=== PATIENT | male | born 1960 | race American Indian/Alaskan Native ===

== ENCOUNTER 2017-09-19 00:05 | Emergency (ER) | payer BC ==
--- NOTE | 2017-09-19 01:57 | XRay Report ---
FINAL REPORT PROCEDURE: XR CHEST ROUTINE 2V TECHNIQUE: A portable AP chest radiograph was obtained at 09/19/2017 00:55 (EST) . CPT 95517 HISTORY: cough X 1 month COMPARISON: No prior studies are available for comparison. FINDINGS: Heart: Normal. Mediastinum/Vessels: Normal. Lungs/Pleural space: Normal. Bony thorax: No acute osseous abnormality. Life support devices: None. IMPRESSION: No acute cardiopulmonary abnormality.
--- NOTE | 2017-09-19 02:02 | Emergency Department Report ---
ED Shortness of Breath HPI - General Chief Complaint: Upper Respiratory Infection Stated Complaint: CP Source: patient Mode of arrival: Ambulatory Limitations: No Limitations - History of Present Illness MD Complaint: cough - Related Data Home Medications Medication Instructions Recorded Confirmed Last Taken Unobtainable 09/19/17 09/19/17 Unknown Allergies Allergy/AdvReac Type Severity Reaction Status Date / Time No Known Allergies Allergy Unverified 09/19/17 00:51 ED Review of Systems ROS: Stated complaint: CP Other details as noted in HPI ED Past Medical Hx - Past Medical History Hx Hypertension: Yes Hx of Cancer: Yes (Testicular) Additional medical history: Pneumonia - Surgical History Past Surgical History?: No Additional Surgical History: Left Testicle Removal - Social History Smoking Status: Never Smoker Substance Use Type: None - Medications Home Medications: Home Medications Medication Instructions Recorded Confirmed Last Taken Type Unobtainable 09/19/17 09/19/17 Unknown History ED Physical Exam - General Limitations: No Limitations ED Course Vital Signs 09/19/17 00:33 Temperature 98.4 F Pulse Rate 76 Respiratory 20 Rate Blood Pressure 151/97 Blood Pressure 151/97 [Left] O2 Sat by Pulse 98 Oximetry Critical care attestation.: If time is entered above; I have spent that time in minutes in the direct care of this critically ill patient, excluding procedure time. ED Disposition Condition: Stable
[2017-09-19 03:10] LABS: Basophils % (Auto) 0.9 % (0.0-1.8); Eosinophils % (Auto) 4.5 % (0.0-4.3); Hematocrit 41.9 % (35.5-45.6); Hemoglobin 13.7 gm/dl (11.8-15.2); Mean Corpuscular HGB Conc 33 % (32-34); Mean Corpuscular Hemoglobin 27 pg (28-32); Mean Corpuscular Volume 84 fl (84-94); Platelet Count 170 K/mm3 (140-440); Red Blood Count 5.02 M/mm3 (3.65-5.03); Red Cell Distribution Width 14.9 % (13.2-15.2); White Blood Count 7.3 K/mm3 (4.5-11.0)
[2017-09-19 03:16] LABS: Anion Gap 17 mmol/L; BUN/Creatinine Ratio 22; Blood Urea Nitrogen 26 mg/dL (9-20); Calcium 9.2 mg/dL (8.4-10.2); Carbon Dioxide 27 mmol/L (22-30); Chloride 103.9 mmol/L (98-107); Glucose 140 mg/dL (75-100); Potassium 4.2 mmol/L (3.6-5.0); Sodium 144 mmol/L (137-145)
[2017-09-19] MEDS ORDERED: NACL ONE (04:22)
--- NOTE | 2017-09-19 05:39 | Cat Scan Report ---
FINAL REPORT PROCEDURE: CT ANGIO CHEST TECHNIQUE: Computerized tomographic angiography of the chest was performed after the IV injection of iodinated nonionic contrast including image processing. The image data was postprocessed using 2-dimensional multiplanar reformatted (MPR) and 3-dimensional (MIP and/or volume rendered) techniques. HISTORY: + d-dimer, cough COMPARISON: No prior studies are available for comparison. FINDINGS: Heart and pericardium: Normal. Thoracic aorta: There is no thoracic aortic aneurysm or dissection.. Pulmonary vasculature: There is no pulmonary embolism.. Lymph nodes: No enlarged thoracic lymph nodes. Lungs: The lungs are expanded. There are fibro emphysematous changes but no active infiltrates.. Pleural space: There is no pleural effusion or pneumothorax.. Musculoskeletal structures: No significant abnormality. Upper abdominal structures: No significant abnormality. Incidental 1 centimeter cyst in the right lobe of the liver. IMPRESSION: There is no thoracic aortic aneurysm or dissection.. There is no pulmonary embolism.. The lungs are expanded. There are fibro emphysematous changes but no active infiltrates.. There is no pleural effusion or pneumothorax..
--- NOTE | 2017-09-19 05:58 | Emergency Department Report ---
ED General Adult HPI - General Chief complaint: Upper Respiratory Infection Stated complaint: CP Time Seen by Provider: 09/19/17 02:17 Source: patient Mode of arrival: Ambulatory Limitations: No Limitations - History of Present Illness Initial comments: 57-year-old male past medical history hypertension, pneumonia presents with complaint of persistent cough 2 months. Patient states that he has been treated for pneumonia in the last 2-3 months. States that he is had a cough which has persisted. Patient states that today he experienced an episode of slightly pleuritic chest pain. Patient denies current chest pain denies palpitations denies nausea vomiting diaphoresis or shortness of breath. Patient is awake alert and oriented 3 does not appear to be in acute distress. No audible wheezing or stridor noted on exam. Patient denies being a smoker. Patient states that he has a persistent dry cough. States that after coughing fits he feels slightly short of breath. Onset/Timin -: month(s) Severity scale (0 -10): 0 Consistency: constant Worsens with: none Associated Symptoms: denies other symptoms - Related Data Previous Rx's Medication Instructions Recorded Last Taken Type ALBUTEROL Inhaler [ProAir HFA 2 puff IH QID PRN #1 inhalation 09/19/17 Unknown Rx Inhaler] Loratadine [Claritin] 10 mg PO DAILY PRN #30 tablet 09/19/17 Unknown Rx predniSONE [Deltasone] 40 mg PO QDAY #10 tablet 09/19/17 Unknown Rx Allergies Allergy/AdvReac Type Severity Reaction Status Date / Time No Known Allergies Allergy Unverified 09/19/17 00:51 ED Review of Systems ROS: Stated complaint: CP Other details as noted in HPI Constitutional: denies: chills, fever Eyes: denies: eye pain, eye discharge, vision change ENT: denies: ear pain, throat pain Respiratory: cough. denies: shortness of breath, wheezing Cardiovascular: denies: chest pain, palpitations Endocrine: no symptoms reported Gastrointestinal: denies: abdominal pain, nausea, diarrhea Genitourinary: denies: urgency, dysuria Musculoskeletal: denies: back pain, joint swelling, arthralgia Skin: denies: rash, lesions Neurological: denies: headache, weakness, paresthesias Psychiatric: denies: anxiety, depression Hematological/Lymphatic: denies: easy bleeding, easy bruising ED Past Medical Hx - Past Medical History Hx Hypertension: Yes Hx of Cancer: Yes (Testicular) Additional medical history: Pneumonia - Surgical History Past Surgical History?: No Additional Surgical History: Left Testicle Removal - Social History Smoking Status: Never Smoker Substance Use Type: None - Medications Home Medications: Home Medications Medication Instructions Recorded Confirmed Last Taken Type ALBUTEROL Inhaler [ProAir HFA 2 puff IH QID PRN #1 inhalation 09/19/17 Unknown Rx Inhaler] Loratadine [Claritin] 10 mg PO DAILY PRN #30 tablet 09/19/17 Unknown Rx predniSONE [Deltasone] 40 mg PO QDAY #10 tablet 09/19/17 Unknown Rx ED Physical Exam - General Limitations: No Limitations General appearance: alert, in no apparent distress - Head Head exam: Present: atraumatic, normocephalic - Eye Eye exam: Present: normal appearance, PERRL, EOMI - ENT ENT exam: Present: mucous membranes moist - Neck Neck exam: Present: normal inspection - Respiratory Respiratory exam: Present: normal lung sounds bilaterally. Absent: respiratory distress - Cardiovascular Cardiovascular Exam: Present: regular rate, normal rhythm. Absent: systolic murmur, diastolic murmur, rubs, gallop - GI/Abdominal GI/Abdominal exam: Present: soft, normal bowel sounds - Rectal Rectal exam: Present: deferred - Extremities Exam Extremities exam: Present: normal inspection - Back Exam Back exam: Present: normal inspection - Neurological Exam Neurological exam: Present: alert, oriented X3 - Psychiatric Psychiatric exam: Present: normal affect, normal mood - Skin Skin exam: Present: warm, dry, intact, normal color. Absent: rash ED Course Vital Signs 09/19/17 09/19/17 00:33 06:31 Temperature 98.4 F Pulse Rate 76 74 Respiratory 20 18 Rate Blood Pressure 151/97 Blood Pressure 151/97 144/86 [Left] O2 Sat by Pulse 98 96 Oximetry ED Medical Decision Making - Lab Data Result diagrams: 09/19/17 02:15 09/19/17 02:15 - Medical Decision Making A/P: Cough, episode of pleuritic chest pain 1-CT angio of chest shows no PE, consistent with mild emphysematous changes 2-chest x-ray unremarkable, d-dimer was positive which is why I ordered CT, troponin negative 3-I provided patient with follow-up with primary care and pulmonology 4- albuterol when necessary, short course prednisone, cough medicine when necessary 5- HEART Score 1, less than 2% risk of MACE Critical care attestation.: If time is entered above; I have spent that time in minutes in the direct care of this critically ill patient, excluding procedure time. ED Disposition Clinical Impression: Chronic cough Disposition: - TO HOME OR SELFCARE Is pt being admited?: No Does the pt Need Aspirin: No Condition: Stable Instructions: Emphysema (ED), Chronic Cough (ED) Prescriptions: ALBUTEROL Inhaler [ProAir HFA Inhaler] 2 puff IH QID PRN #1 inhalation PRN Reason: Shortness Of Breath Loratadine [Claritin] 10 mg PO DAILY PRN #30 tablet PRN Reason: Cough predniSONE [Deltasone] 40 mg PO QDAY #10 tablet Referrals: MATTHIAS CRUMP MD [Staff Physician] - 3-5 Days VALERIA MENARD MD [Staff Physician] - 3-5 Days Forms: Work/School Release Form(ED) Time of Disposition: 05:55
[2017-09-19 06:32] VITALS: BP 144/86
== END 2017-09-19 06:32 | disposition home or self-care (01) ==
LOC: ED 00:05
DX: R05 Cough (principal); G89.29 Other chronic pain; I10 Essential (primary) hypertension; Z85.47 Personal history of malignant neoplasm of testis
CPT/HCPCS: 36415; 71020; 71275; 80048; 82805; 84484; 85025; 85379; 93005; 93010; 99284; Q9967

== ENCOUNTER 2018-07-27 19:05 | Emergency (ER) | payer BC ==
[2018-07-27 19:16] VITALS: BP 124/80
[2018-07-27 19:54] LABS: Basophils # (Auto) 0.1 K/mm3 (0.0-0.1); Eosinophils # (Auto) 0.4 K/mm3 (0.0-0.4); Eosinophils % (Auto) 6.4 % (0.0-4.3); Hematocrit 38.8 % (35.5-45.6); Hemoglobin 12.7 gm/dl (11.8-15.2); Lymphocytes # (Auto) 1.7 K/mm3 (1.2-5.4); Lymphocytes % (Auto) 30.3 % (13.4-35.0); Mean Corpuscular HGB Conc 33 % (32-34); Mean Corpuscular Hemoglobin 28 pg (28-32); Mean Corpuscular Volume 85 fl (84-94); Monocytes # (Auto) 0.6 K/mm3 (0.0-0.8); Monocytes % (Auto) 11.4 % (0.0-7.3); Platelet Count 188 K/mm3 (140-440); Red Blood Count 4.56 M/mm3 (3.65-5.03); Red Cell Distribution Width 14.1 % (13.2-15.2)
[2018-07-27 20:09] LABS: Alanine Aminotransferase 19 units/L (7-56); Albumin 4.3 g/dL (3.9-5); BUN/Creatinine Ratio 15; Blood Urea Nitrogen 20 mg/dL (9-20); Calcium 8.9 mg/dL (8.4-10.2); Hemolysis Index 1
[2018-07-27 20:16] LABS: Bilirubin,Urine NEG (Negative); Blood,Urine NEG (Negative); Color,Urine Straw (Yellow); Mucus,Urine FEW /HPF; Protein,Urine <15 mg/dL mg/dL (Negative); Urobilinogen,Urine < 2.0 mg/dL (<2.0)
--- NOTE | 2018-07-27 20:32 | Emergency Department Report ---
ED N/V/D HPI - General Chief complaint: Nausea/Vomiting/Diarrhea Stated complaint: CHEST PAIN Time Seen by Provider: 07/27/18 19:50 Source: patient Mode of arrival: Ambulatory Limitations: No Limitations - History of Present Illness Initial comments: 58-year-old -[place] male presents to the emergency room complaints of diarrhea nausea vomiting and crampy abdominal pains. Patient reports that he went to [facility] earlier in the day and now has presented with gastro- complaints. Patient reports he has a past medical history of hypertension but currently on no meds since he has decreasing sodium intake. Patient reports that he has had 6-7 loose stools today. MD complaint: nausea, vomiting, diarrhea, abdominal pain -: This morning Description of Vomiting: food contents Description of Diarrhea: water Associated Abdominal Pain: Yes (crampy in nature) Location: diffuse Radiation: none Quality: cramping Consistency: intermittent Improves with: rest Worsens with: eating, bowel movement Context: possible food poisoning Associated Symptoms: denies other symptoms - Related Data Previous Rx's Medication Instructions Recorded Last Taken Type ALBUTEROL Inhaler (OR & NICU) 2 puff IH QID PRN #1 inhalation 09/19/17 Unknown Rx [ProAir HFA Inhaler] Loratadine [Claritin] 10 mg PO DAILY PRN #30 tablet 09/19/17 Unknown Rx predniSONE [Deltasone] 40 mg PO QDAY #10 tablet 09/19/17 Unknown Rx Ondansetron [Zofran ODT TAB] 8 mg PO Q8HR #12 tab.rapdis 07/27/18 Unknown Rx Allergies Allergy/AdvReac Type Severity Reaction Status Date / Time No Known Allergies Allergy Verified 07/27/18 19:19 ED Review of Systems ROS: Stated complaint: CHEST PAIN Other details as noted in HPI Constitutional: denies: chills, fever Eyes: denies: eye pain, eye discharge, vision change ENT: denies: ear pain, throat pain Respiratory: denies: cough, shortness of breath, wheezing Cardiovascular: denies: chest pain, palpitations Endocrine: no symptoms reported Gastrointestinal: abdominal pain, nausea, vomiting, diarrhea Genitourinary: denies: urgency, dysuria Musculoskeletal: denies: back pain, joint swelling, arthralgia Skin: denies: rash, lesions Neurological: denies: headache, weakness, paresthesias Psychiatric: denies: anxiety, depression Hematological/Lymphatic: denies: easy bleeding, easy bruising ED Past Medical Hx - Past Medical History Previous Medical History?: Yes Hx Hypertension: Yes Additional medical history: Pneumonia - Surgical History Past Surgical History?: Yes Additional Surgical History: Left Testicle Removal - Social History Smoking Status: Never Smoker Substance Use Type: None - Medications Home Medications: Home Medications Medication Instructions Recorded Confirmed Last Taken Type ALBUTEROL Inhaler (OR & NICU) 2 puff IH QID PRN #1 inhalation 09/19/17 Unknown Rx [ProAir HFA Inhaler] Loratadine [Claritin] 10 mg PO DAILY PRN #30 tablet 09/19/17 Unknown Rx predniSONE [Deltasone] 40 mg PO QDAY #10 tablet 09/19/17 Unknown Rx Ondansetron [Zofran ODT TAB] 8 mg PO Q8HR #12 tab.rapdis 07/27/18 Unknown Rx ED Physical Exam - General Limitations: No Limitations General appearance: alert, in no apparent distress - Head Head exam: Present: atraumatic, normocephalic - Eye Eye exam: Present: EOMI - ENT ENT exam: Present: mucous membranes moist - Neck Neck exam: Present: full ROM. Absent: lymphadenopathy - Respiratory Respiratory exam: Present: normal lung sounds bilaterally. Absent: respiratory distress - Cardiovascular Cardiovascular Exam: Present: regular rate, normal rhythm. Absent: systolic murmur, diastolic murmur, rubs, gallop - GI/Abdominal GI/Abdominal exam: Present: soft. Absent: distended, tenderness - Rectal Rectal exam: Present: deferred - Extremities Exam Extremities exam: Present: full ROM - Neurological Exam Neurological exam: Present: alert, oriented X3 - Psychiatric Psychiatric exam: Present: normal affect, normal mood - Skin Skin exam: Present: warm, dry, intact, normal color. Absent: rash ED Course Vital Signs 07/27/18 07/27/18 19:14 19:20 Temperature 97.8 F 97.8 F Pulse Rate 76 72 Respiratory 16 16 Rate Blood Pressure 124/80 124/80 O2 Sat by Pulse 98 98 Oximetry ED Medical Decision Making - Lab Data Result diagrams: 07/27/18 19:32 07/27/18 19:32 - Medical Decision Making Patient has been evaluated by this provider fast track. Discussed the patient to increase his water intake by 2 L. He can take Zofran for the nausea and vomiting. Patient needs to rest and advance his diet as tolerated. Critical care attestation.: If time is entered above; I have spent that time in minutes in the direct care of this critically ill patient, excluding procedure time. ED Disposition Clinical Impression: Gastroenteritis Disposition: DC-01 TO HOME OR SELFCARE Is pt being admited?: No Does the pt Need Aspirin: No Condition: Stable Instructions: Gastroenteritis (ED) Additional Instructions: Please increase her water intake by 2 L. Advance her diet as tolerated. Please allow her body to rest. Prescriptions: Ondansetron [Zofran ODT TAB] 8 mg PO Q8HR #12 tab.rapdis Referrals: PRIMARY CARE, [Primary Care Provider] - 3-5 Days [facility] [Provider Group] - 3-5 Days Forms: Work/School Release Form(ED)
== END 2018-07-27 20:40 | disposition home or self-care (01) ==
LOC: ED 19:05
DX: K52.9 Noninfective gastroenteritis and colitis, unspecified (principal); I10 Essential (primary) hypertension
CPT/HCPCS: 36415; 80053; 81001; 85025; 99283

== ENCOUNTER 2019-09-01 23:26 | Emergency (ER) | payer BC ==
[2019-09-01] MEDS ORDERED: ASPIRIN 325 MG TAB PO ONE (23:34)
--- NOTE | 2019-09-02 00:16 | XRay Report ---
CHEST 1 VIEW 09/01/2019 11:50 PM INDICATION / CLINICAL INFORMATION: Chest Pain. COMPARISON: 10/26/18 FINDINGS: SUPPORT DEVICES: None. HEART / MEDIASTINUM: Heart is upper normal size and stable. Thoracic aorta is ectatic and tortuous bu t unchanged. LUNGS / PLEURA: No significant pulmonary or pleural abnormality. No pneumothorax. ADDITIONAL FINDINGS: No significant additional findings. IMPRESSION: 1. No acute pulmonary or pleural findings. No change. Signer Name: Juan Miguel Cadet MD Signed: 09/02/2019 12:11 AM Workstation Name: [id number]
[2019-09-02 00:34] LABS: Basophils # (Auto) 0.1 K/mm3 (0.0-0.1); Basophils % (Auto) 1.2 % (0.0-1.8); Eosinophils # (Auto) 0.1 K/mm3 (0.0-0.4); Eosinophils % (Auto) 2.1 % (0.0-4.3); Hematocrit 40.6 % (35.5-45.6); Hemoglobin 13.2 gm/dl (11.8-15.2); Lymphocytes # (Auto) 1.9 K/mm3 (1.2-5.4); Lymphocytes % (Auto) 35.2 % (13.4-35.0); Mean Corpuscular HGB Conc 33 % (32-34); Mean Corpuscular Volume 84 fl (84-94); Monocytes # (Auto) 0.6 K/mm3 (0.0-0.8); Monocytes % (Auto) 12.2 % (0.0-7.3); Platelet Count 192 K/mm3 (140-440); Red Blood Count 4.83 M/mm3 (3.65-5.03); Red Cell Distribution Width 14.9 % (13.2-15.2)
[2019-09-02] MEDS ORDERED: SODIUM CHLORIDE 0.9% 1000 ML 1,000 ML IV ONE (00:41)
[2019-09-02 00:45] LABS: BUN/Creatinine Ratio 12; Blood Urea Nitrogen 16 mg/dL (9-20); Calcium 8.7 mg/dL (8.4-10.2); Hemolysis Index 0
--- NOTE | 2019-09-02 01:19 | Emergency Department Report ---
ED Chest Pain HPI - General Chief Complaint: Chest Pain Stated Complaint: Fatigue Time Seen by Provider: 09/01/19 23:46 Source: patient Mode of arrival: Ambulatory Limitations: No Limitations - History of Present Illness Initial Comments: Mr. Smith is a 59-year-old male with history of hypertension, SVT who presents with chest pain since he nausea beginning today. Approximately 7 PM while driving to work, he developed quite a 4 out of 10 chest pressure central which lasted one hour duration. Now spontaneously resolved. He attributed the chest pain due to recent sparring. He just felt fatigue. He admits to feeling exhausted working an extra shift. MD Complaint: chest pain -: Sudden, This evening Onset: other (while driving) Pain Location: substernal Severity: mild Severity scale (0 -10): 2 Quality: pressure Consistency: now resolved Improves With: other (walking around) Worsens With: nothing re: nausea - Related Data Previous Rx's Medication Instructions Recorded Last Taken Type ALBUTEROL Inhaler (OR & NICU) 2 puff IH QID PRN #1 inhalation 09/19/17 Unknown Rx [ProAir HFA Inhaler] Loratadine [Claritin] 10 mg PO DAILY PRN #30 tablet 09/19/17 Unknown Rx predniSONE [Deltasone] 40 mg PO QDAY #10 tablet 09/19/17 Unknown Rx Ondansetron [Zofran ODT TAB] 8 mg PO Q8HR #12 tab.rapdis 07/27/18 Unknown Rx Allergies Allergy/AdvReac Type Severity Reaction Status Date / Time No Known Allergies Allergy Verified 07/27/18 19:19 Heart Score - HEART Score History: Slightly suspicious EKG: Non-specific Age: 45-65 Risk factors: 1-2 risk factors Troponin: < normal limit HEART Score: 3 ED Review of Systems ROS: Stated complaint: Fatigue Other details as noted in HPI Comment: All other systems reviewed and negative Constitutional: denies: fever, malaise Respiratory: denies: cough Cardiovascular: chest pain Gastrointestinal: nausea, vomiting ED Past Medical Hx - Past Medical History Previous Medical History?: Yes Hx Hypertension: Yes Additional medical history: Pneumonia - Surgical History Past Surgical History?: Yes Additional Surgical History: Left Testicle Removal - Family History Family history: CAD/[place] (father had multiple heart attacks), cancer (father had history of cancer) - Social History Smoking Status: Never Smoker Substance Use Type: Alcohol - Medications Home Medications: Home Medications Medication Instructions Recorded Confirmed Last Taken Type ALBUTEROL Inhaler (OR & NICU) 2 puff IH QID PRN #1 inhalation 09/19/17 Unknown Rx [ProAir HFA Inhaler] Loratadine [Claritin] 10 mg PO DAILY PRN #30 tablet 09/19/17 Unknown Rx predniSONE [Deltasone] 40 mg PO QDAY #10 tablet 09/19/17 Unknown Rx Ondansetron [Zofran ODT TAB] 8 mg PO Q8HR #12 tab.rapdis 07/27/18 Unknown Rx ED Physical Exam - General Limitations: No Limitations General appearance: alert, in no apparent distress - Head Head exam: Present: atraumatic, normocephalic - Eye Eye exam: Present: normal appearance - ENT ENT exam: Present: mucous membranes moist - Neck Neck exam: Present: normal inspection, full ROM - Respiratory Respiratory exam: Present: normal lung sounds bilaterally. Absent: respiratory distress, wheezes, rales, rhonchi - Cardiovascular Cardiovascular Exam: Present: regular rate, normal rhythm, normal heart sounds. Absent: systolic murmur, diastolic murmur, rubs, gallop - GI/Abdominal GI/Abdominal exam: Present: soft, normal bowel sounds. Absent: distended, tenderness, guarding, rebound - Rectal Rectal exam: Present: deferred - Extremities Exam Extremities exam: Present: normal inspection - Back Exam Back exam: Present: normal inspection - Neurological Exam Neurological exam: Present: alert, oriented X3 - Psychiatric Psychiatric exam: Present: normal affect, normal mood - Skin Skin exam: Present: warm, dry, intact, normal color. Absent: rash ED Course Vital Signs 09/01/19 09/02/19 09/02/19 23:28 00:18 00:55 Temperature 97.8 F 98.1 F Pulse Rate 72 63 61 Respiratory 18 11 L 13 Rate Blood Pressure 136/95 148/103 Blood Pressure 146/95 [Left] O2 Sat by Pulse 97 98 98 Oximetry 09/02/19 09/02/19 01:30 01:32 Temperature Pulse Rate 57 L 56 L Respiratory 13 16 Rate Blood Pressure Blood Pressure 143/95 [Left] O2 Sat by Pulse 97 96 Oximetry ED Medical Decision Making - Lab Data Result diagrams: 09/01/19 23:56 09/01/19 23:56 Laboratory Results - last 24 hr 10/03/19 10/03/19 23:56 23:56 WBC 5.3 RBC 4.83 Hgb 13.2 Hct 40.6 MCV 84 MCH 27 L MCHC 33 RDW 14.9 Plt Count 192 Lymph % (Auto) 35.2 H Drew % (Auto) 12.2 H Eos % (Auto) 2.1 Baso % (Auto) 1.2 Lymph # 1.9 Drew # 0.6 Eos # 0.1 Baso # 0.1 Seg Neutrophils % 49.3 Seg Neutrophils # 2.6 Sodium 140 Potassium 3.9 Chloride 101.0 Carbon Dioxide 27 Anion Gap 16 BUN 16 Creatinine 1.3 Estimated GFR > 60 BUN/Creatinine Ratio 12 Glucose 102 H Calcium 8.7 Troponin T < 0.010 - EKG Data 09/02/19 01:19 EKG obtained 2333 Normal sinus rhythm rate 60 beats a minute left axis deviation phone OK interval normal QTC biphasic T waves in the lateral leads V5 and V6 largely unchanged from EKGs 09/19/2017, there are changes as compared from 10/26/2018 subtle T- wave changes in the inferior leads - Radiology Data Radiology results: report reviewed Chest radiograph: No acute process according to radiology impression L elbow radiographs: No acute fracture or subluxation prominent focal soft tissue swelling over the olecranon process - Medical Decision Making Mrs. Smith is a 59-year-old male with history of hypertension, nonischemic cardiomyopathy EF 40-45%, SVT who presents with chest pain fatigue nausea. He is concerned for overexertion working extra shifts. He also has been vigorously working out. 4 out of 10 nonspecific chest pressure resolved spontaneously. I reviewed electronic record. Additional information is found under medical record [id number]. In September he underwent cardiac catheterization which revealed mild luminal disease of the LAD and RCA focal stenosis 20%. Mr. Smith is followed by Dr. Ott [facility]. I spoke with car escort sewer separation designer Dr. Echeverria. In his opinion, Mr. Smith did not need further risk stratification with mostly normal coronary anatomy. 2 sets of troponin negativ e. Mr. Smith has previous appointment for next week on the to follow-up with Dr. Ott personal car escort. He understands to return to the emergency department for any recurrent symptoms. No indication of alternative emergent causes of chest pain such as dissection pneumothorax pulmonary embolism. Additional concern: Left elbow swelling. He has swelling at the olecranon region. Upon further history taking, Mr. Smith informed inform me that he fell onto the elbow 3 weeks ago after tussling with a patient.\. Diagnosis traumatic bursitis. Elbow radiographs negative for fracture. I do not suspect septic bursitis. Referred to orthopedic surgeon. Critical care attestation.: If time is entered above; I have spent that time in minutes in the direct care of this critically ill patient, excluding procedure time. ED Disposition Clinical Impression: Chest pain, Fatigue, Traumatic bursitis Disposition: DC-01 TO HOME OR SELFCARE Is pt being admited?: No Does the pt Need Aspirin: No Condition: Stable Instructions: Chest Pain (ED), Elbow Bursitis (ED) Referrals: PERNELL OTT MD [Staff Physician] - 3-5 Days CHEKO JUAREZ MD [Staff Physician] - as needed Forms: Work/School Release Form(ED)
[2019-09-02 01:41] VITALS: BP 143/95
--- NOTE | 2019-09-02 02:16 | XRay Report ---
LEFT ELBOW 3 VIEW(S) INDICATION / CLINICAL INFORMATION: left elbow swelling direct blow fall 3 weeks ago COMPARISON: None available. FINDINGS: BONES / JOINT(S): No acute fracture or subluxation. Mild elbow degenerative arthrosis. Possible small body in the posterior joint space in the region of the olecranon fossa. SOFT TISSUES: Prominent focal soft tissue swelling over the olecranon process representing hematoma v ersus traumatic olecranon bursitis. ADDITIONAL FINDINGS: None. Signer Name: Juan Miguel Cadet MD Signed: 09/02/2019 2:12 AM Workstation Name: [id number]
== END 2019-09-02 03:43 | disposition home or self-care (01) ==
LOC: ED 23:26
DX: R07.89 Other chest pain (principal); M71.50 Other bursitis, not elsewhere classified, unspecified site; R53.83 Other fatigue; I10 Essential (primary) hypertension; Z98.890 Other specified postprocedural states
CPT/HCPCS: 36415; 71045; 73080; 80048; 84484; 85025; 93005; 93010; J7030; 96360